=== PATIENT | male | born 1985 | race Hispanic/Latino ===

== ENCOUNTER 2022-08-02 11:55 | Emergency (ER) | payer SELFPAY ==
[~2022-08-02] VITALS: Ht 162.6 cm; Wt 85.7 kg
[2022-08-02] MEDS ORDERED: MOTRIN400 MG/TAB PO (13:29)
[2022-08-02 13:32] VITALS: BP 143/91
== END 2022-08-02 13:45 | disposition home or self-care (01) | DRG 999 ==
LOC: ED 11:55
DX: S00.03XA Contusion of scalp, initial encounter (principal); S06.9X1A Unspecified intracranial injury with loss of consciousness of 30 minutes or less, initial encounter; S00.01XA Abrasion of scalp, initial encounter; W17.89XA Other fall from one level to another, initial encounter; Y92.89 Other specified places as the place of occurrence of the external cause; Y99.0 Civilian activity done for income or pay; Z21 Asymptomatic human immunodeficiency virus [HIV] infection status

== ENCOUNTER 2022-11-02 21:18 | Emergency (ER) | payer SELFPAY ==
[~2022-11-02] VITALS: Ht 162.6 cm; Wt 81.2 kg
[~2022-11-02 21:18] MED LIST: MOTRIN400 MG/TAB PO
[2022-11-02 22:08] VITALS: BP 141/91
[2022-11-02 22:15] VITALS: BP 146/99
[2022-11-02 22:44] VITALS: BP 143/90
[2022-11-02 22:54] LABS: URINE BILIRUBIN - DIPSTICK Negative (NEGATIVE); URINE BLOOD DIPSTICK Negative (NEGATIVE); URINE COLOR Yellow; URINE GLUCOSE - DIPSTICK Negative (NEGATIVE); URINE KETONE Negative (NEGATIVE); URINE LEUK ESTERASE Negative (NEGATIVE); URINE NITRITE - DIPSTICK Negative (Negative); URINE PH 5.5 (4.5-8.0); URINE PROTEIN - DIPSTICK Negative (NEG-TRACE); URINE SPECIFIC GRAVITY >=1.030; URINE UROBILINOGEN - DIPSTICK 0.2 E.U./dL (0.2)
[2022-11-02 22:55] LABS: BASO% 0.3 % (0-3); EOS% 1.6 % (0-8); HEMATOCRIT 43.4 % (39.0-50.0); IMMATURE GRANULOCYTES 0.1 % (0.0-5.0); LYMPH% 27.5 % (15-41); MEAN CELL VOLUME 92.5 fL CALC (80.0-100.0); MEAN CORPUSCULAR HGB CONC 34.6 g/dL CAL (32.0-36.0); MONO% 4.8 % (2-13); NEUT# 6.35 thou/uL (1.82-7.42); NEUT% 65.7 % (42-76); RED BLOOD COUNT 4.69 mill/uL (4.70-6.10); RED CELL DISTRI WIDTH 11.6 % (11.5-15.5)
[2022-11-02 23:00] VITALS: BP 138/89
[2022-11-02 23:08] LABS: ALBUMIN 4.6 g/dL (3.2-5.0); ALKALINE PHOSPHATASE 53 u/l (38-126); ANION GAP 13 (6-22 (CALC)); BILIRUBIN, TOTAL 0.5 mg/dL (0.2-1.3); BUN 9 mg/dL (9-20); BUN/CREATININE RATIO 11 (12-20 (CALC)); CARBON DIOXIDE 25 mmol/l (22-30); CHLORIDE 106 mmol/l (95-108); CREATININE 0.8 mg/dL (0.7-1.3); GFR FOR AFR.AMER. > 60 ML/MIN (>=60 (CALC)); GFR OTHER RACES > 60 ML/MIN (>=60 (CALC)); LIPASE 55 u/l (23-300); SGOT/AST 40 u/l (17-59); SODIUM 139 mmol/l (137-146); TOTAL PROTEIN 7.8 g/dL (6.3-8.2)
[2022-11-02 23:15] VITALS: BP 135/86
[2022-11-02 23:30] VITALS: BP 125/77
[2022-11-03 00:14] VITALS: BP 131/86
[2022-11-03 00:30] VITALS: BP 130/84
[2022-11-03 00:45] VITALS: BP 130/84
[2022-11-03] MEDS ORDERED: DOVATO 50-300 M1 TAB (22:55)
[2022-11-04] MEDS ORDERED: PERCOCET 5/325M1 TAB PO (12:31)
== END 2022-11-03 00:45 | disposition home or self-care (01) | DRG 392 ==
LOC: ED 21:18
PROVIDERS: Emergency Medicine
DX: K59.00 Constipation, unspecified (principal); E66.9 Obesity, unspecified; Z21 Asymptomatic human immunodeficiency virus [HIV] infection status
CPT/HCPCS: Q9967

== ENCOUNTER 2022-11-03 19:47 | Observation (INO) | payer SELFPAY ==
[~2022-11-03] VITALS: Ht 162.6 cm; Wt 80.0 kg
[2022-11-03 20:18] VITALS: BP 149/96
[2022-11-03 20:56] LABS: URINE BILIRUBIN - DIPSTICK Negative (NEGATIVE); URINE BLOOD DIPSTICK Negative (NEGATIVE); URINE COLOR Yellow; URINE GLUCOSE - DIPSTICK Negative (NEGATIVE); URINE KETONE Negative (NEGATIVE); URINE LEUK ESTERASE Negative (NEGATIVE); URINE NITRITE - DIPSTICK Negative (Negative); URINE PH 6.5 (4.5-8.0); URINE PROTEIN - DIPSTICK 30 mg/dL (NEG-TRACE); URINE SPECIFIC GRAVITY >=1.030; URINE UROBILINOGEN - DIPSTICK 0.2 E.U./dL (0.2)
[2022-11-03 20:59] LABS: BASO% 0.3 % (0-3); EOS% 1.5 % (0-8); IMMATURE GRANULOCYTES 0.2 % (0.0-5.0); LYMPH% 24.2 % (15-41); MEAN CELL VOLUME 91.9 fL CALC (80.0-100.0); MEAN CORPUSCULAR HGB 32.1 pG CALC (26.0-32.0); MEAN CORPUSCULAR HGB CONC 34.9 g/dL CAL (32.0-36.0); MONO% 4.8 % (2-13); NEUT# 6.48 thou/uL (1.82-7.42); RED BLOOD COUNT 4.68 mill/uL (4.70-6.10); RED CELL DISTRI WIDTH 11.5 % (11.5-15.5)
[2022-11-03 21:02] LABS: URINE RBC 0-2 RBC/hpf (0-5); URINE WBC 0-2 WBC/hpf (0-5)
[2022-11-03 21:15] LABS: ALBUMIN 4.7 g/dL (3.2-5.0); ALKALINE PHOSPHATASE 64 u/l (38-126); ANION GAP 12 (6-22 (CALC)); BILIRUBIN, TOTAL 0.5 mg/dL (0.2-1.3); BUN 10 mg/dL (9-20); BUN/CREATININE RATIO 13 (12-20 (CALC)); CARBON DIOXIDE 26 mmol/l (22-30); CHLORIDE 104 mmol/l (95-108); CREATININE 0.8 mg/dL (0.7-1.3); GFR FOR AFR.AMER. > 60 ML/MIN (>=60 (CALC)); GFR OTHER RACES > 60 ML/MIN (>=60 (CALC)); LIPASE 105 u/l (23-300); POTASSIUM 4.1 mmol/l (3.5-5.1); SGOT/AST 53 u/l (17-59); SODIUM 138 mmol/l (137-146); TOTAL PROTEIN 7.8 g/dL (6.3-8.2)
--- NOTE | 2022-11-03 21:30 | NUR ---
PT AMBULATED TO ROOM 10 FOR TRIAGE AND CARE AT BEDSIDE
[2022-11-03 21:45] VITALS: BP 153/100
--- NOTE | 2022-11-03 22:39 | NUR ---
PT ADMITTED FOR [facility]. WILL HAVE SURGERY IN THE MORNING. PT HAS TO STAY IN THE ER OVER NIGHT UNTIL A BED BECOMES OPEN. REPORT GIVEN TO MIKE ROLLE THAT IS TAKEING OVER CARE.
--- NOTE | 2022-11-03 22:46 | NUR ---
REPORT RECIEVED BY TERESA SHAH. PT A/OX3 AND SAO TOMEAN SPEAKING ONLY. PRIMARY CARE PHYSICIAN AT BEDSIDE. RESPIRATIONS EVEN AND UNLABORED ON ROOM AIR. LUNG SOUNDS CLEAR. HEART RHYTHM NORMAL. BOWEL SOUNDS ACTIVE. #20G RAC PATENT. SKIN INTACT. PT C/O OF 3/10 PAIN IN RLQ. PT ORIENTED TO ROOM AND CALL LIGHT SYSTEM. PT TO REMAINS IN ER HOLDING. ALL SAFETY PRECAUTIONS ARE IN PLACE WITH CALLL LIGHT IN REACH. REMAINS AT BEDSIDE.
[2022-11-03 22:51] VITALS: BP 141/92
[2022-11-03] MEDS ORDERED: DOVATO 50-300 M1 TAB (22:55)
[2022-11-04] VITALS (12 sets, daily range): BP systolic 111–137; BP diastolic 72–89
--- NOTE | 2022-11-04 01:14 | NUR ---
PT REMAINS SLEEPING IN SEMI FOWLERS POSITION. RESPIRATIONS EVEN AND UNLABORED. SLEEP APNEA NOTED. O2 DESAT INTO 80'S, 2L NC APPLIED. #20G RAC INFUSING WITH IVF PER ORDER. PT DNIES OF ANY NEEDS. ALL SAFETY PRECAUTIONS IN PLACE WITH CALL LIGHT IN REACH
--- NOTE | 2022-11-04 04:15 | NUR ---
PT SLEEPING IN SEMI FOWLERS POSITION. RESPIRATIONS EVEN AND UNLABORED ON 2L NC. IVF INFUSING PER ORDER, #20G RAC PATENT. NO SIGNS OF ANY DISTRESS NOTED. ALL SAFETY PRECAUTIONS ARE IN PLACE WITH CALL LIGHT IN REACH.
--- NOTE | 2022-11-04 06:45 | NUR ---
PT TO FLOOR WITH [place], METALS ANALYST
--- NOTE | 2022-11-04 07:05 | NUR ---
PERFROMED BEDSIDE REPORT WITH NIGHTSHIFT NURSE. PT NOTED LAYING SUPINE IN BED, RESTING COMFORTABLY, AT BEDSIDE. PT ON RM AIR, NO S/S OF DISTRESS AT THIS TIME. IV SITE NOTED APPEARS HEALTHY AND INTACT FLUIDS RUNNING PER EMAR. CALL LIGHT WITHIN REACH AND SAFETY PRECAUTIONS IN PLACE.
--- NOTE | 2022-11-04 08:00 | NUR ---
NIGHTSHIFT NURSE DEBORAH WAS ABLE TO TRANSLATE TO OBTAIN CONSENT FOR PROCEDURE ORDERED.
--- NOTE | 2022-11-04 10:12 | NUR ---
OR NURSE TOBY USED LANGUAGE LINE TO COMMUNICATE WITH PT. LANGUAGE LINE ID NUMBER [id number] PT EDUCATED ON PROCEDURE, VERIFICATION OF PT UNDERSTANDING OF PROCEDURE. VERIFIED IDENTITY. PT BROUGHT DOWN TO OR VIA STR.
[2022-11-04] MEDS ORDERED: PERCOCET 5/325M1 TAB PO (12:31)
--- NOTE | 2022-11-04 13:20 | NUR ---
PT BROUGHT BACK UP FROM OR VIA STR. PT WAS ABLE TO SCOOT OVER FROM STR INTO BED. PT IS STILL DROWSY, COMPLAINS OF PAIN 3 OUT OF 10 IN ABD AREA. RECEIEVED REPORT FROM OR NURSE. PT LAYING IN BED, RESTING COMFORTABLY AT THIS TIME. CALL LIGHT WITHIN REACH AND SAFETY PRECAUTIONS IN PLACE.
--- NOTE | 2022-11-04 17:04 | NUR ---
PT IS LAYING SEMI FOWELRS IN BED, SCDS APPLIED. PT IS MORE AWAKE AND ALERT AT THIS TIME. AT BEDSIDE. CALL LIGHT WITHIN REACH AND SAFETY PRECAUTIONS IN PLACE.
--- NOTE | 2022-11-04 18:37 | NUR ---
LANGUAGE LINE USED FOR TRANSLATION OF D/C INSTRUCTIONS. ID#[id number] Discharge instructions given. Patient verbalizes understanding of same. Discharged in stable condition via Wheelchair to Home with staff. All belongings sent with pt. IV site discontinued, cath intact. No edema , no redness, voices no discomfort.
== END 2022-11-04 19:15 | disposition home or self-care (01) | DRG 418 ==
LOC: ED 19:47 → ED-I 21:26 → ED 21:43 → ED-I 21:44 → MS2 21:44 → ED-I 21:44 → MS2 11-04 06:46
PROVIDERS: Family Medicine; ADMIT Surgery; ATTEND Surgery
PROC: 0FT44ZZ Resection of Gallbladder, Percutaneous Endoscopic Approach (ICD-10-PCS; principal; 2022-11-04)
DX: K80.10 Calculus of gallbladder with chronic cholecystitis without obstruction (principal); K82.1 Hydrops of gallbladder; Z21 Asymptomatic human immunodeficiency virus [HIV] infection status; Z79.899 Other long term (current) drug therapy
CPT/HCPCS: G0378; J0131; J1100; J2710